=== PATIENT | male | born 1970 | race Caucasian/White ===

== ENCOUNTER 2025-03-27 08:33 | Emergency (ER) | payer BC, SELFPAY ==
[2025-03-27 08:39] VITALS: BP 131/87; PULSE 81; RESP 16; TEMP 36.6; O2SAT 96; BMI 22.0
--- NOTE | 2025-03-27 09:11 | ED_ITS ---
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 He states he initially had an ear infection 4 weeks ago and was started on amoxicillin. He states symptoms resolved with the amoxicillin. Symptoms then came back yesterday. Has not had any fever or chills. Has some mild inner ear pain. Denies any pain around the ear. Denies any pain behind the ear. No other concerns noted at this time. Related Data Previous Rx's ?Medication ?Instructions ?Recorded amoxicillin 875 mg-potassium 1 tab PO BID 10 days #20 tabs 03/27/25 clavulanate 125 mg tablet Allergies Allergy/AdvReac Type Severity Reaction Status Date / Time No Known Drug Allergies Allergy Verified 03/27/25 08:54 Review of Systems Narrative: Pertinent systems reviewed and were negative unless stated in HPI Exam Narrative: Exam Narrative: Const: Well-nourished, Well-developed, in no distress Eyes: PERRL, no conjunctival injection, and symmetrical lids HENT: Atraumatic external nose and ears. Moist mucous membranes. Erythematous left tympanic membrane with fluid seen behind the tympanic membrane. Normal appearing Right tympanic membrane. Normal appearing Bilateral external auditory canals. MSK:Extremities w/o deformity, Normal Active ROM Skin: Warm, Dry. No rashes or lesions. Neuro: Normal Muscle tone, No focal neurological deficits. Psych: Awake, Alert, & Oriented x3. Appropriate mood and affect. Const: Vital Signs, click to edit/add: Vital Signs - 24 hr 03/27/25 08:39 Temperature 97.9 F Pulse Rate [Pulse Oximeter] 81 Respiratory Rate 16 Blood Pressure [Ri ght Upper Arm] 131/87 Pulse Oximetry 96 Oxygen Delivery Me thod Room Air Course Vital Signs Vital signs: Initial Vital Signs Temperature 97.9 F 03/27/25 08:39 Temperature Source Temporal Artery Scan 03/27/25 08:39 Pulse Rate 81 03/27/25 08:39 Respiratory Rate 16 03/27/25 08:39 Blood Pressure 131/87 03/27/25 08:39 Blood Pressure Mean 101 03/27/25 08:39 Blood Pressure Position Sitting 03/27/25 08:39 Pulse Oximetry 96 03/27/25 08:39 Oxygen Delivery Method Room Air 03/27/25 08:39 Vital Signs Temperature 97.9 F 03/27/25 08:39 Pulse Rate 81 03/27/25 08:39 Respiratory Rate 16 03/27/25 08:39 Blood Pressure 131/87 03/27/25 08:39 Pulse Oximetry 96 03/27/25 08:39 Oxygen Delivery Method Room Air 03/27/25 08:39 Temperature 97.9 F 03/27/25 08:39 Pulse Rate 81 03/27/25 08:39 Respiratory Rate 16 03/27/25 08:39 Blood Pressure 131/87 03/27/25 08:39 Pulse Oximetry 96 03/27/25 08:39 Oxygen Delivery Method Room Air 03/27/25 08:39 Medical Decision Making MDM Narrative Medical decision making narrative: Patient is a 55-year-old male presenting for left ear pain. He does have otitis media. No signs of otitis externa or mastoiditis. Since he has recently been amoxicillin I will switch him to Augmentin. Is not having any other symptoms. Can be discharged. Discharge Plan Discharge Clinical Impression: Otitis media Qualifiers: Otitis media type: unspecified Chronicity: acute Qualified Code(s): H66.90 - Otitis media, unspecified, unspecified ear Patient Disposition: Home, Self-Care Condition: Stable Instructions: Ear Infection (ED) Additional Instructions: Take the Augmentin as directed. Follow up with the primary care provider if symptoms are not improving by next week. Prescriptions: New amoxicillin-pot clavulanate 875-125 mg tablet 1 tab PO BID 10 Days Qty: 20 0RF Stand Alone Forms: [employer] Info Instructions
--- OUTSIDE RECORDS SUMMARY | 2025-03-27 09:41 | XMS_ITS | Clinical Summary ---
Author Organization [employer] [facility] [employer] Address [facility] [place] [address] Care Team Providers Care Zipper Setter Lockstitch Name Role Phone Juan Diego Prabhakar MD Primary Care Provider Allergies Active AllergyReactionsCriticalityNoted MthjVmygxaveWqxgbuUtirbky41/20/2024 Medications MedicationSigDispense QuantityRefillsLast FilledStart DateEnd DateStatus ciprofloxacin-dexAMETHasone (CIPRODEX) otic suspension Indications:Acute otitis externa of left ear, unspecified typePlace 4 Drops into left ear two times daily. 7.5 mL 5Active amoxicillin-clavulanate (AUGMENTIN) 875-125 mg tablet Indications:Recurrent acute suppurative otitis media without spontaneous rupture of left tympanic membraneTake 1 Tablet by mouth two times daily with meals for 5 days. 10 Tablet Expired Active Problems ProblemNoted DateDiagnosed DateSensorineural hearing loss (SNHL) of right ear with restricted hearing of left ear11/08/2024Mixed conductive and sensorineural hearing loss of left ear with restricted hearing of right ear11/08/2024 Perforation of left tympanic /06/2025 Resolved Problems ProblemNoted DateDiagnosed DateResolved DateSensorineural hearing loss, /23/68978511/09/2024 Overview (09/23/2023): ASL and hearing aides Encounters DateTypeDepartmentCare YumiHrcozhlkppk97/22/2025 2:05 PM OUTBOUND SUPERVISOR - 03/26/2025 5:[facility] [address] [facility] [address] [facility] [place] [address] Discharge Disposition: Against Medical Advice or Discontinued Care03/26/[address] [address] Olya Markham AuD Appointment (ENT appointment needed for ear drainage)03/26/20253394Jztwki49/18/2025 3:30 PM CSTOffice Visit [address] [address] Debora Marks AuD Hearing Aid (FIELD check)03/22/20251377Wunuzu31/16/2025Telephone [address] [address] Debora Marks AuD 02/28/2025 11:00 AM CSTOffice Visit [address] [address] Debora Marks AuD Hearing Aid (FIELD check)02/28/20256043Ntvgjv81/21/2025 10:08 AM OUTBOUND SUPERVISOR - 02/23/2025 10:52 AM [facility] [address] [place] [address] Natalee Garrison MD Recurrent acute suppurative otitis media without spontaneous rupture of left tympanic membrane (Primary Dx); Acute otitis externa of left ear, unspecified type Discharge Disposition: Home Self Care02/23/20250775Gymngw62/10/2025Telephone [address] [address] Debora Marks AuD 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 Aid (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)02/12/2025Telephone [address] [address] Selina Debora, Ramirez Hearing Aid02/08/2025 11:30 AM CSTOffice Visit [address] [address] WillsonSanti Debora, AuD Hearing Aid (FIELD check (fitting EMs and LT FIELD))02/08/20259301Akmokg48/28/2025 2:45 PM CDTNurse/Clinic Staff Only [address] [address] Immunization/Injection (Flu); Immunization/Xuwjlxtxj11/28/7346Jyplcx84/23/2025 12:30 PM CDTOffice Visit [address] [address] AnthonyNorberto Debora, Ramirez Hearing Aid (FIELD fitting)01/25/20259947Qqgbjq97/20/2025Telephone [address] [address] Juan Diego Prabhakar MD Questions (Flu shot / labs)01/04/2025 11:00 AM CDTOffice Visit [address] [address] DemetrisMasoodNorberto Debora, AuD Hearing Aid (consult)01/04/2025 10:45 AM CDTOffice Visit [address] [phone] Nelida Rawls MD Consult (medical clearance for hearing aids)01/04/20257970Cbcamx17/25/2025Telephone [address] [address] Olya Markham AuD Appointment (Patient is incorrectly scheduled)from Last 3 Months Immunizations ImmunizationAdministration DatesNext DueCOVID-19 VACCINE SPIKEVAX (MODERNA 50MCG/0.5ML) 12YO+ PFS4COVID-19 vaccine (Cellca 30mcg/0.3mL) PF, MDV04/03/2022,12/23/2020,11/22/2020INFLUENZA, IIV3 PF (AGE >= 6 MO) 01/30/2025Influenza, [id number]/22/2024,06/17/2007 Family History Medical HistoryRelationNameCommentsHeart attackFathersmokerCOPDMotherStroke MotherHeart attackPaternal GrandfatherRelationNameStatusCommentsFatherDeceased Maternal GrandfatherDeceasedMaternal GrandmotherDeceasedMotherDeceasedPaternal GrandfatherDeceasedPaternal GrandmotherDeceased Social History Tobacco UseTypesPacks/DayYears UsedDateSmoking Tobacco: NeverPassive Smoke Exposure: NeverSmokeless Tobacco: Never Tobacco Cessation:Counseling Given: Not Answered Alcohol UseStandard Drinks/WeekCommentsNot Currently0 (1 standard drink = 0.6 oz pure alcohol)PHQ-2AnswerDate RecordedPHQ-2 TOTAL TIQUH321Social ConnectionsAnswerDate RecordedDo you often feel lonely or isolated from those around you?Financial Resource StrainAnswerDate RecordedDifficulty of Paying Living Mfyrkwnc993ifficulty of Paying Living Wupfihdf569/20/2024 Food InsecurityAnswerDate RecordedDo you worry your food will run out before you are able to buy more?Transportation NeedsAnswerDate RecordedDoes lack of transportation keep you from medical appointments?oes lack of transportation keep you from work, meetings or getting things that you need?1 10/21/2023Housing StabilityAnswerDate RecordedWhat is your housing situation today?Interpersonal SafetyAnswerDate RecordedAre you being hit, kicked, pushed or yelled at (see row info)?No03/26/2025Interpersonal Safety Abuse 12 - 18Not on file03/26/2025Interpersonal Safety Ambulatory Vulnerability Not on file03/26/2025UtilitiesAnswerDate RecordedDo you have trouble paying for utilities (for example, heat, electricity, water, phone)?Sex and Gender InformationValueDate RecordedSex Assigned at BirthNot on fileLegal Sex Male04/18/2012 7:37 AM CSTGender IdentityNot on fileSexual OrientationNot on fileOccupationIndustryJob Start DateJob End DateretiredNot on fileNot on fileNot on file Last Filed Vital Signs Vital SignReadingTime TakenCommentsBlood Alygmjet915/9003/26/2025 2:14 PM OUTBOUND SUPERVISOR Ijwht774103/26/2025 2:14 PM PEGZmyzgcegefk57.7 ??C (98 ??F)03/26/2025 2:14 PM OUTBOUND SUPERVISOR Respiratory Umyi808205/27/2024 2:14 PM CSTOxygen Krdavfmyxn39%03/26/2025 2:14 PM CSTInhaled Oxygen Concentration--Otytxd14.2 kg (135 lb)03/26/2025 2:14 PM OUTBOUND SUPERVISOR Lualpe043.6 cm (5' 4)03/26/2025 2:14 PM CSTBody Mass Index23.17105/27/2024 2:14 PM OUTBOUND SUPERVISOR Plan of Treatment DateTypeDepartmentCare Team (Latest Contact Info)Vytkpvtvcoq08/07/2026 10:00 AM CSTOffice Visit [facility] [address] [place] [address] [facility] [address] [place] [address] Health MaintenanceDue DateLast DoneCommentsDepression screening for age 12+ 1981Hepatitis B series for 19+ (1 of 3 - 19+ 3-dose series)01/12/1988 Pneumococcal series for age 50+ (1 of 1 - PCV)2019Zoster (shingles) series for age 50+ (1 of 2)2019COVID-19 vaccine series (2024- season) 5005/25/2023, 07/15/2021, 12/23/2020, Additional history existsBMI (ht and wt on same day) for age 18+/, 10/25/2023, 05/25/2023Fecal testing sDNA-FIT (Cologuard) for age 45-Lipids for age 45-750, 05/25/2023Tetanus , 06/17/2007RSV vaccine for adults or (1 - 1-dose 75+ series)01/12/2044 HIV for age 15-21Vvgulgznf55/20/2024Hepatitis C screening for age 18-79Completed 05/25/2023Influenza JccadkrMpwataawb56/28/2025, 05/25/2023 Procedures Procedure NamePriorityDate/TimeAssociated DiagnosisCommentsHEARING AID MEDICAL VEDFRERVHVxfqhcm66/02/2025 10:38 AM CDT Sensorineural hearing loss (SNHL), bilateral Tympanic membrane perforation, left LIPID PANEL W REFLEX MEASURED BOCVgdqrkz78/31/2025 3:46 PM CDT Mixed hyperlipidemia Well adult exam SDNA-FIT EXTERNAL (COLOGUARD)Uvfbcnj2305/31/2023 9:30 AM OUTBOUND SUPERVISOR Screening for colon cancer ANTI HIV 1/2Gmfhhso76/20/2024 1:12 PM OUTBOUND SUPERVISOR Screen for STD (sexually transmitted disease) ANTI NZJMkqovdf21/20/2024 1:12 PM OUTBOUND SUPERVISOR Encounter for hepatitis C screening test for low risk patient from Last 3 Months or Most Recently Relevant to Health Maintenance Results * LIPID PANEL W REFLEX MEASURED LDL (07/03/2024 3:46 PM CDT)ComponentValueRef RangeTest MethodAnalysis TimePerformed AtPathologist SignatureCHOLESTEROL, SVVWS863<200 mg/dLQuest Biotz [facility] North HospitalDL RURMBGLWMJM68> OR = 40 mg/dL RepunchSchuyler AulaQNHKUKAYRRLJP105<150 mg/dLQuest Biotz Formerly [facility] HospitaleLDL-TVATYHSUYEQ08mm/dL (calc)[employer] ParesheComment: Reference range: <100 Desirable range <100 mg/dL for primary prevention; <70 mg/dL for patients with CHD or diabetic patients with > or = 2 CHD risk factors. LDL-C is now calculated using the Ena calculation, which is a validated novel method providing better accuracy than the Friedewald equation in the estimation of LDL-C. Manfred MIX et al. CAMILO. 2013;310(19): 2701-3280 (http://education.[employer]/faq/IVJ171) CHOL/HDLC RATIO3.2<5.0 (calc)Aunt Kitchen-[employer]News Formerly [facility] HospitaleNON HDL GKDCJANAGBN297 <130 mg/dL (calc)[employer] Formerly [facility]Chow[facility] HospitaleComment: For patients with diabetes plus 1 major ASCVD risk factor, treating to a non-HDL-C goal of <100 mg/dL (LDL-C of <70 mg/dL) is considered a therapeutic option. Specimen (Source)Anatomical Location / LateralityCollection Method / Volume Collection TimeReceived TimeBloodBLOOD SPECIMEN / Rnyxtbp4007/03/2024 3:46 PM CDT 07/03/2024 3:48 PM CDT Narrative [facility] - 07/04/2024 6:34 AM CDT FASTING:NO FASTING: NO Authorizing ProviderResult TypeResult StatusGeorge Gopi Prabhakar MDCHEMISTRY Final ResultPerforming OrganizationAddressCity/State/ZIP CodePhone Number [employer] [facility] [address] [place] [address], [facility] Kitchen[facility] [address] [place] [address] * SDNA-FIT EXTERNAL (COLOGUARD) (05/31/2023 9:30 AM OUTBOUND SUPERVISOR)ComponentValueRef Range Test MethodAnalysis TimePerformed AtPathologist SignatureNONINV COLON CA DNA+OCC BLD SCRN STL-MLWZddvccnuMqmqxrov18/02/2024 9:44 PM CSTEXBeijing Zhongka Century [employer] Media (CLIA #:[id number])Comment: NEGATIVE TEST RESULT. A negative Cologuard result indicates a low likelihood that a colorectal cancer (CRC) or advanced adenoma (adenomatous polyps with more advanced pre-malignant features) ??is present. The chance that a person with a negative Cologuard test has a colorectal cancer is less than 1in 1500 (negative predictive value >99.9%) or has an advanced adenoma is less than 5.3% (negative predictive value 94.7%). These data are based on a prospective cross-sectional study of 10,000individuals at average risk for colorectal cancer who were screened with both Cologuard and colonoscopy. (Wei Sanderson et al, N Engl J Med 2014;370(14):3030-7598) The normal value (reference range) for this assay is negative. COLOGUARD RE-SCREENING RECOMMENDATION: Periodic colorectal cancer screening is an important part ofpreventive healthcare for asymptomatic individuals at average risk for colorectal cancer. ??Following a negative Cologuard result, the [place] [employer] Society and U.S. Multi-Society Task Force screening guidelines recommend a Cologuard re-screening interval of 3 years. References: [place] [employer] Guideline for Colorectal Cancer Screening: https://www.cancer.or g/cancer/znaqx-dmyypz-qjiqdm/wgcozijbl-zbhkdzmjs-qybcxgm/acs-recommendations.htm dahlia; Silas GASPAR, Marium MARTINO, Jennifer DEL REAL, Colorectal Cancer Screening: Recommendations for Physicians and Patients from the U.S. Multi-Society Task Force on Colorectal Cancer Screening , Am J Gastroenterology 2017; 112:5877-6802. TEST DESCRIPTION: Composite algorithmic analysis of stool DNA-biomarkers with hemoglobin immunoassay. ?? Quantitative values of individual biomarkers are not reportable and are not associated with individual biomarker result reference ranges. Cologuard is intended for colorectal cancer screening ofadults of either sex, 45 years or older, who are at average-risk for colorectal cancer (CRC). Cologuard has been approved for use by the U.S. FDA. The performance of Cologuard was established in a cross sectional study of average-risk adults aged 50-84. Cologuard performance in patients ages 45 to 49 years was estimated by sub-group analysis of near-age groups. Colonoscopies performed for a positive result may find as the most clinically significant lesion: colorectal cancer [4.0%], advanced adenoma (including sessile serrated polyps greater than or equal to 1cm diameter) [20%] or non- advanced adenoma [31%]; or no colorectal neoplasia [45%]. These estimates are derived from a prospective cross-sectional screening study of 10,000 individuals at average risk for colorectal cancer who were screened with both Cologuard and colonoscopy. (Wei Wakefield al, N Engl J Med 2014;370(14):3814-1002.) Cologuard may produce a false negative or false positive result (no colorectal cancer or precancerous polyp present at colonoscopy follow up). A negative Cologuard test result does not guarantee the absence of CRC or advanced adenoma (pre-cancer). The current Cologuard screening interval is every 3 years. ([place] [employer] Society and U.S. Multi-Society Task Force). Cologuard performance data in a 10,000 patient pivotal study using colonoscopy as the reference method can be accessed at the following location: www.[employer].MaxCDN/results. Additional description of the Cologuard test process, warnings and precautions can be found at www.cologTroverd.MaxCDN. Specimen (Source)Anatomical Location / LateralityCollection Method / Volume Collection TimeReceived TimeStool specimen (specimen) (Rectum)05/31/2023 9:30 AM CST06/01/2023 10:00 AM OUTBOUND SUPERVISOR Narrative Authorizing ProviderResult TypeResult StatusJulie Savannah Hunt DOURINEFinal Result Performing OrganizationAddressCity/State/ZIP CodePhone Number [facility] (CLIA #:[id number]) [place] [address], * ANTI HCV (05/25/2023 1:12 PM OUTBOUND SUPERVISOR)ComponentValueRef RangeTest MethodAnalysis TimePerformed AtPathologist SignatureHEPATITIS C ANTIBODYNon-Reactive Non-Dnpbyysh66/21/2024 12:[address] [facility] Comment:Please note, per www.CDC.gov: If a patient is known to be at high risk of HCV infection, or is symptomatic, and the physician's suspicion of HCV infection is high, HCV RNA testing is often employed and is of diagnostic value, even after an initial negative anti-HCV test result.Specimen (Source) Anatomical Location / LateralityCollection Method / VolumeCollection Time Received TimeBloodBLOOD SPECIMEN / UnknownVenipuncture / Fbjvuqx5705/25/2023 1:12 PM CST05/25/2023 1:13 PM OUTBOUND SUPERVISOR Narrative Authorizing ProviderResult TypeResult StatusJulie Savannah STOREY OUTSFinal ResultPerforming OrganizationAddressCity/State/ZIP CodePhone Number [facility] [address] [place] [address], * ANTI HIV 1/2 (05/25/2023 1:12 PM OUTBOUND SUPERVISOR)ComponentValueRef RangeTest Method Analysis TimePerformed AtPathologist SignatureHIV-1/HIV-2 SCREENNon-Reactive Non-Uqxxabue25/21/2024 12:59 PM CSTOCE[facility] Comment:HIV-1 p24 and HIV-1/HIV-2 Ab Not Detected.Specimen (Source)Anatomical Location / LateralityCollection Method / VolumeCollection TimeReceived Time BloodBLOOD SPECIMEN / UnknownVenipuncture / Imsnujs8705/25/2023 1:12 PM OUTBOUND SUPERVISOR 05/25/2023 1:13 PM OUTBOUND SUPERVISOR Narrative Authorizing ProviderResult TypeResult StatusJulie Savannah STOREY OUTSFinal ResultPerforming OrganizationAddressCity/State/ZIP CodePhone Number [facility] [address] [place] [address], from Last 3 Months or Most Recently Relevant to Health Maintenance Insurance Care Teams Team MemberRelationshipSpecialtyStart DateEnd Date Juan Diego Prabhakar MD [address] [facility] [place] [address] PCP - GeneralFamily Practice07/03/24
== END 2025-03-27 09:32 | disposition home or self-care (01) ==
PROVIDERS: Emergency Provider Student in an Organized Health Care Education/Training Program
DX: H66.92 Otitis media, unspecified, left ear (principal)
CPT/HCPCS: 99283